=== PATIENT | female | born 1995 | race African-American/Black ===

== ENCOUNTER → 2018-03-12 | Outpatient (CLI) | payer BC ==
[2018-03-15 07:12] LABS: HEPATITIS B SURFACE AB QUANT <3.1 mIU/mL (Immunity>9.9); MUMPS IGG AB 92.8 AU/mL (Immune >10.9); RUBELLA IGG AB 2.75 index (Immune >0.99); RUBEOLA IGG AB >300.0 AU/mL (Immune >29.9); VARICELLA ZOSTER IGG AB 1043 index (Immune >165)
== END ==
LOC: EDBD 17:46 → OD 17:46
PROVIDERS: ATTEND Physician Assistant
DX: Z01.84 Encounter for antibody response examination (principal)
CPT/HCPCS: 36415; 86317; 86735; 86762; 86765; 86787